=== PATIENT | female | born 2000 | race Caucasian/White ===

== ENCOUNTER 2019-07-17 19:39 | Emergency (ER) | payer OTHER ==
--- NOTE | 2019-07-17 19:48 | PHYS DOC ---
Past History Past Medical History: Bronchitis, UTI Adult General Chief Complaint Chief Complaint: RIB PAIN..."This all started a couple weeks ago... cold, runny nose, congestion, cough.. but it never got better... I took some old .. antibiotic... I think some left over Z-pack .. for the last two days.. but the pain is worse tonight on this Lt flank and lower chest...." HPI HPI Patient is a 18 year old female who presents with above hx and complaints of rib pain and pleurisy-like chest pain. Initial onset of symptoms started with a upper respiratory infection. No history of blood clots in her family members. Recently, started taking some leftover antibiotics. Patient does take control. No history of trauma. No history of travel or specific ill contacts. No history of immunosuppression. Follows with Rajan Noble Review of Systems Review of Systems Constitutional: Denies fever or chills [] Eyes: Denies change in visual acuity, redness, or eye pain [] HENT: Denies nasal congestion or sore throat [] Respiratory: Complaints of cough and pleuritic chest pain on right closed phrenic angle Cardiovascular: No additional information not addressed in HPI [] GI: Denies abdominal pain, nausea, vomiting, bloody stools or diarrhea [] : Denies dysuria or hematuria [] Musculoskeletal: Denies back pain or joint pain [] Integument: Denies rash or skin lesions [] Neurologic: Denies headache, focal weakness or sensory changes [] Endocrine: Denies polyuria or polydipsia [] All other systems were reviewed and found to be within normal limits, except as documented in this note. Family History Family History Noncontributory Current Medications Current Medications See nursing for home meds Allergies Allergies No known drug allergies Physical Exam Physical Exam Constitutional: Well developed, well nourished, no acute distress, non-toxic appearance. [] HENT: Normocephalic, atraumatic, bilateral external ears normal, oropharynx moist, no oral exudates, nose normal. [] Eyes: PERRLA, EOMI, conjunctiva normal, no discharge. [] Neck: Normal range of motion, no tenderness, supple, no stridor. [] Cardiovascular:Heart rate regular rhythm, no murmur [] Lungs & Thorax: Bilateral breath sounds equal at apex on auscultation. Scattered wheezes on auscultation. Does have point tenderness on right anterior axillary line at T7 level. Pain is reproducible on palpation. Pain with anterior to posterior compression and side to side compression. Eat breath and cough exacerbates chest wall pain Abdomen: Bowel sounds normal, soft, no tenderness, no masses, no pulsatile masses. [] Skin: Warm, dry, no erythema, no rash. [] Back: No tenderness, no CVA tenderness. [] Extremities: No tenderness, no cyanosis, no clubbing, ROM intact, no edema. [] Cording appreciated. Neurologic: Alert and oriented X 3, normal motor function, normal sensory function, no focal deficits noted. [] Psychologic: Affect normal, judgement normal, mood normal. [] EKG EKG My interpretation EKG shows a sinus rhythm at 83 bpm. No findings of acute STEMI with contralateral changes.[] Radiology/Procedures Radiology/Procedures [][place] [address] IMAGING REPORT Signed PATIENT: MICHELLE BARCENAS ACCOUNT: [id number] : 2000 LOCATION: ER AGE: 18 SEX: F EXAM STATUS: REG ER ORD. PHYSICIAN: KARMEN BOYCE MD REASON: cp, elev. d-dimer, shortness of breath, cough, OMNI 350, 75ml PROCEDURE: CT ANGIOGRAPHY CHEST EXAM: CT angiography of the chest with intravenous contrast. HISTORY: Shortness of breath. Elevated d-dimer. TECHNIQUE: Computed tomographic images of the chest were obtained following the administration of 75 cc Omnipaque 350 intravenous contrast according to angiography protocol. Multiplanar reformatting was performed and 3-dimensional maximum intensity projection images were obtained. *One or more of the following individualized dose reduction techniques were utilized for this examination: 1. Automated exposure control. 2. Adjustment of the mA and/or kV according to patient size. 3. Use of iterative reconstruction technique. COMPARISON: None. FINDINGS: There is no evidence of pulmonary embolism. There is no aortic aneurysm or dissection. The heart is normal in size. There is no lymphadenopathy. There is no pneumothorax or pleural effusion. There are 4 mm and 3 mm nodules along the pleural fissures, the appearance of which favors a benign fissural lymph nodes. No suspicious nodule is seen. There is no suspicious osseous lesion. IMPRESSION: No evidence of pulmonary embolism or alternative acute thoracic finding. Electronically signed by: Zenaida López MD (07/17/2019 10:45 PM) [facility] DICTATED AND SIGNED BY: ZENAIDA LÓPEZ MD DATE: 07/17/19 1867 CC: RAJAN TOM; KARMEN BOYCE MD ~ Course & Med Decision Making Course & Med Decision Making Pertinent Labs and Imaging studies reviewed. (See chart for details) Patient declines admission at this time. Exhibits [facility] capacity. Patient to take Bactrim DS twice a day 7 days. Patient take aspirin daily. Patient push fluids. Patient follow-up primary care. Patient return of any concerns. Patient uses MDI 2 puffs 4 times a day. Take prednisone 50 mg a day for 5 days. Must follow-up Impression: 1. Chest Pain 2. Elevated D-dimer 0.82 3. Hx of Upper Respiratory infection and Bronchitis x 2 weeks. 4. Urinary tract infection Note there was a computer shut down during work up this pt.. There may be missing information and or duplication. [] Dragon Disclaimer Dragon Disclaimer This electronic medical record was generated, in whole or in part, using a voice recognition dictation system. Departure Departure: Disposition: 01 HOME/RESIDENCE PRIOR TO ADM Condition: STABLE Referrals: RAJAN TOM (PCP) Stan Disclaimer This chart was dictated in whole or in part using Voice Recognition software in a busy, high-work load, and often noisy Emergency Department environment. It may contain unintended and wholly unrecognized errors or omissions. KARMEN BOYCE MD Jul 17, 2019 19:48
[2019-07-17] MEDS ORDERED: IV RINGERS SOLUTION,LACTATED 1,000 ML IV SCH (20:04)
[2019-07-17] MEDS ORDERED: ALBUTEROL SULFATE 8GM INHALER. IH ONE (20:15)
[2019-07-17] MEDS ORDERED: ASPIRIN 81 MG TAB.CHEW PO ONE (20:15)
[2019-07-17] MEDS ORDERED: predniSONE 10 MG TABLET PO ONE (20:15)
[2019-07-17 20:31] LABS: BARBITURATES NEG (NEG); BENZODIAZEPINES NEG (NEG); CANNABINOIDS NEG (NEG); COCAINE NEG (NEG); METHADONE NEG (NEG); OPIATES NEG (NEG); PHENCYCLIDINE NEG (NEG)
[2019-07-17 20:37] LABS: AMPHETAMINE/METHAMPHETAMINE NEG (NEG)
[2019-07-17 20:43] LABS: BASO % 0 % (0-3); EOS # 0.1 x10^3/uL (0.0-0.7); EOS % 1 % (0-3); HEMATOCRIT 41.6 % (36.0-47.0); HEMOGLOBIN 13.7 g/dL (12.0-15.5); LYMPH # 3.4 x10^3/uL (1.0-4.8); LYMPH % 46 % (24-48); MEAN CORPUSCULAR HEMOGLOBIN 30 pg (25-35); MEAN CORPUSCULAR HGB CONC 33 g/dL (31-37); MEAN CORPUSCULAR VOLUME 90 fL (79-100); MONO # 0.3 x10^3/uL (0.0-1.1); MONO % 5 % (0-9); NEUT # 3.6 x10^3uL (1.8-7.7); NEUT % 48 % (31-73); PLATELET COUNT 329 x10^3/uL (140-400); RED BLOOD COUNT 4.63 x10^6/uL (3.50-5.40); RED CELL DISTRIBUTION WIDTH 13.1 % (11.5-14.5); WHITE BLOOD COUNT 7.4 x10^3/uL (4.0-11.0)
[2019-07-17 20:43] LABS: AMORPHOUS SEDIMENT,UR PRESENT /HPF; BACTERIA,URINE MANY /HPF (0-FEW); BILIRUBIN,URINE NEG (NEG); CLARITY,URINE HAZY; COLOR,URINE YELLOW; GLUCOSE,URINE NEG (NEG); NITRITE,URINE NEG (NEG); RBC,URINE OCC /HPF (0-2); SQUAMOUS EPITHELIAL CELL,UR FEW /LPF; UROBILINOGEN,URINE 1 mg/dL (0.2 mg/dL)
--- NOTE | 2019-07-17 20:55 | RAD ---
EXAM: Chest, 2 views. HISTORY: Cough. COMPARISON: None. FINDINGS: 2 views of the chest are obtained. There is no infiltrate, pleural effusion or pneumothorax. The heart is normal in size. There is a small oval density overlying the midline thoracic inlet, likely overlying the patient. IMPRESSION: No acute pulmonary finding. Electronically signed by: Zenaida Renteria MD (07/17/2019 8:52 PM) [facility]
[2019-07-17 21:03] LABS: ALBUMIN 3.7 g/dL (3.4-5.0); CALCIUM 9.2 mg/dL (8.5-10.1); CREATININE 0.9 mg/dL (0.6-1.0); DIRECT BILIRUBIN 0.2 mg/dL (0.0-0.2); GFR 79.8; MAGNESIUM 1.9 mg/dL (1.8-2.4); POTASSIUM 4.4 mmol/L (3.5-5.1); TOTAL BILIRUBIN 0.9 mg/dL (0.2-1.0); TOTAL PROTEIN 7.2 g/dL (6.4-8.2)
[2019-07-17] MEDS ORDERED: CONTRAST GIVEN MC PRN (21:30)
[2019-07-17] MEDS ORDERED: IOHEXOL 350 MG/ML 100 ML VIAL. IV ONE (22:00)
[2019-07-17] MEDS ORDERED: ENOXAPARIN ** NOTE DOSE ** SYRINGE SQ ONE (22:30)
--- NOTE | 2019-07-17 22:48 | RAD ---
EXAM: CT angiography of the chest with intravenous contrast. HISTORY: Shortness of breath. Elevated d-dimer. TECHNIQUE: Computed tomographic images of the chest were obtained following the administration of 75 cc Omnipaque 350 intravenous contrast according to angiography protocol. Multiplanar reformatting was performed and 3-dimensional maximum intensity projection images were obtained. *One or more of the following individualized dose reduction techniques were utilized for this examination: 1. Automated exposure control. 2. Adjustment of the mA and/or kV according to patient size. 3. Use of iterative reconstruction technique. COMPARISON: None. FINDINGS: There is no evidence of pulmonary embolism. There is no aortic aneurysm or dissection. The heart is normal in size. There is no lymphadenopathy. There is no pneumothorax or pleural effusion. There are 4 mm and 3 mm nodules along the pleural fissures, the appearance of which favors a benign fissural lymph nodes. No suspicious nodule is seen. There is no suspicious osseous lesion. IMPRESSION: No evidence of pulmonary embolism or alternative acute thoracic finding. Electronically signed by: Zenaida Renteria MD (07/17/2019 10:45 PM) [id number]
[2019-07-17 22:49] LABS: INFLUENZA A PATIENT NEGATIVE (NEGATIVE); INFLUENZA B PATIENT NEGATIVE (NEGATIVE)
[2019-07-17] MEDS ORDERED: CEPHALEXIN 250 MG CAPSULE ONE (23:47)
[2019-07-17 23:57] VITALS: BP 118/72
[2019-07-18] MEDS ORDERED: CEPHALEXIN 250 MG CAPSULE PO ONE (00:30)
--- NOTE | 2019-07-18 01:53 | EKG ---
[address] [address] Test Date: 2019-07-17 Test Time: 20:21:02 Pat Name: MICHELLE BARCENAS Department: Room: Gender: F Senior Lead Software Engineer: : 2000 Requested By: KARMEN BOYCE Order Number: [id number] Reading MD: Bhavik Martinez Measurements Intervals [place] Rate: 83 P: 59 MA: 130 QRS: 80 QRSD: 88 T: 31 QT: 384 QTc: 452 Interpretive Statements SINUS RHYTHM NORMAL ECG Electronically Signed On 07-18-2019 13:53:54 LEAD DENTAL ASSISTANT by Bhavik Martinez
[2019-07-18 14:17] LABS: THYROID STIM HORMONE (TSH) 1.994 uIU/mL (0.358-3.740)
== END 2019-07-18 00:02 | disposition home or self-care (01) ==
LOC: ER 19:39
DX: R07.81 Pleurodynia (principal); R79.1 Abnormal coagulation profile; N39.0 Urinary tract infection, site not specified; Z87.440 Personal history of urinary (tract) infections
CPT/HCPCS: 36415; 71046; 71275; 80048; 80061; 80076; 80307; 81001; 81025; 82550; 83690; 83735; 83880; 84443; 84484; 85025; 85379; 85610; 85730; 87070; 87086; 87804; 87880; 93005; 94640; 96372; 99285; J1650; J7120; J7512; J7613; Q9967; 94664